=== PATIENT | female | born 1990 | race Caucasian/White ===

== ENCOUNTER 2018-01-10 01:01 | Emergency (ER) | payer BC ==
[2018-01-10] MEDS ORDERED: GI COCKTAIL 45 ML (Maalox/Lidocaine) PO ONE (01:09)
[2018-01-10] MEDS ORDERED: PROTONIX 40 MG IV IV ONE (01:09)
[2018-01-10] MEDS ORDERED: Zofran 4 MG/2 ML VIAL IV ONE (01:09)
[2018-01-10] MEDS ORDERED: Sodium Chloride 0.9% 1000 ML 1,000 ML IV SCH (01:15)
[2018-01-10 01:19] VITALS: BP 124/99; PULSE 98; O2SAT 97
[2018-01-10] MEDS ORDERED: AMOXIL 500 MG PO ONE (01:31)
[2018-01-10] MEDS ORDERED: Tylenol #3 Tablet PO ONE (01:32)
--- NOTE | 2018-01-10 01:39 | ERPHSYRPT ---
- History of Present Illness Time Seen by Provider: 01/10/18 01:22 Source: patient Exam Limitations: clinical condition Patient Subjective Stated Complaint: Pt arrives to ER with c/o left sided jaw pain states has wisdom teeth that are impacted and pain woke pt up out of sleep this morning. Denies fever. Is unsure of abscess. Triage Nursing Assessment: no swelling appreicated. trachea midline. denies difficulty breathing. admits difficulty swallowing. throat is painful. Physician History: PATIENT COMPLAINS OF A LEFT UPPER REAR TOOTHACHE FOR WEEKS, HAS INCREASING PAIN PAST 2-3 DAYS ASSOCIATED WITH GINGIVA SWELLING. DENIES FEVER, DIFFICULTY BREATHING OR SWALLOWING. Timing/Duration: gradual onset Severity: moderate ENT Location: dental Prearrival Treatment: no prearrival treatment Modifying Factors: Improves With: activity Associated Symptoms: facial pain/swelling Allergies/Adverse Reactions: No Known Drug Allergies Allergy (Verified 01/10/18 01:20) Hx Tetanus, Diphtheria Vaccination/Date Given: Yes Hx Influenza Vaccination/Date Given: No Hx Pneumococcal Vaccination/Date Given: No Immunizations Up to Date: Yes - Review of Systems Constitutional: No Fever, No Chills Eyes: No Symptoms Ears, Nose, & Throat: No Symptoms, Loose Teeth Respiratory: No Symptoms, No Cough, No Dyspnea Cardiac: No Symptoms, No Chest Pain, No Edema, No Syncope Abdominal/Gastrointestinal: No Abdominal Pain, No Nausea, No Vomiting, No Diarrhea Genitourinary Symptoms: No Dysuria Musculoskeletal: No Back Pain, No Neck Pain Skin: No Rash Neurological: No Dizziness, No Focal Weakness, No Sensory Changes Psychological: No Symptoms Endocrine: No Symptoms All Other Systems: Reviewed and Negative - Past Medical History Pertinent Past Medical History: Yes Neurological History: No Pertinent History ENT History: No Pertinent History Cardiac History: No Pertinent History Respiratory History: No Pertinent History Endocrine Medical History: No Pertinent History Musculoskeletal History: No Pertinent History GI Medical History: No Pertinent History History: No Pertinent History Psycho-Social History: No Pertinent History Female Reproductive Disorders: Other Other Medical History: PRE ECLAMPSIA - Past Surgical History Past Surgical History: Yes Neuro Surgical History: No Pertinent History Cardiac: No Pertinent History Respiratory: No Pertinent History Gastrointestinal: No Pertinent History Genitourinary: No Pertinent History Musculoskeletal: No Pertinent History Female Surgical History: Section - Social History Smoking Status: Never smoker Exposure to second hand smoke: No Drug Use: none Patient Lives Alone: No - Female History Hx Last Menstrual Period: 12/30/17 Hx Now: No - Nursing Vital Signs Nursing Vital Signs: Initial Vital Signs Temperature 98.8 F 01/10/18 01:13 Pulse Rate 98 H 01/10/18 01:13 Respiratory Rate 18 01/10/18 01:13 Blood Pressure 124/99 01/10/18 01:13 O2 Sat by Pulse Oximetry 97 01/10/18 01:13 Pain Scale Pain Intensity 6 - Physical Exam General Appearance: no apparent distress, alert Nasal Exam: normal inspection Throat Exam: dental tenderness (FRACTURED LEFT UPPER 3RD MOLAR TOOTH, WITH GINGIVAL SWELLING AND TENDERNESS, MULTIPLE CARIES RIGHT UPPER MOLARS) Neck Exam: normal inspection Cardiovascular/Respiratory Exam: chest non-tender SpO2 Interpretation: normal SpO2: 97 Oxygen Delivery: Room Air Ordered Tests: Active Orders 24 hr Category Date Time Status EKG-ER Only STAT Care 01/10/18 01:09 Inactive IV Insertion STAT Care 01/10/18 01:09 Inactive ABDOMEN AND PELVIS W CONTRAST [CT] Stat Exams 01/10/18 01:09 Stop Req Medication Summary Generic Name Dose Route Start Last Admin Trade Name Freq PRN Reason Stop Dose Admin Acetaminophen/Codeine Phosphate 2 tab 01/10/18 01:32 Tylenol #3 Tablet PO 01/10/18 01:33 SENT HOME W/ PATIENT ONE Discontinued Medications Generic Name Dose Route Start Last Admin Trade Name Freq PRN Reason Stop Dose Admin Amoxicillin 500 mg 01/10/18 01:31 Amoxil 500 Mg PO 01/10/18 01:32 STAT ONE Sodium Chloride 1,000 mls @ 100 mls/hr 01/10/18 01:15 Sodium Chloride 0.9% 1000 Ml IV 02/09/18 01:14 .Q10H ALYX Magnesium Hydroxide 45 ml 01/10/18 01:09 Gi Cocktail 45 Ml (Maalox/Lidocaine) PO 01/10/18 01:10 STAT ONE Ondansetron HCl 4 mg 01/10/18 01:09 Zofran 4 Mg/2 Ml Vial IV 01/10/18 01:10 STAT ONE Pantoprazole Sodium 40 mg 01/10/18 01:09 Protonix 40 Mg Iv IV 01/10/18 01:10 STAT ONE - Progress Progress Note: 01/10/18 01:39 ADMINISTERED AMOXICILLIN 500MG ORALLY Counseled pt/family regarding: diagnosis, need for follow-up - Departure Time of Disposition: 01:55 Departure Disposition: Home Clinical Impression: WIDESPREAD DENTAL CARIES Condition: Stable Critical Care Time: No Referrals: PABLITO GOODE [Primary Care Provider] - Additional Instructions: BEGIN ANTIBIOTIC AMOXICILLIN 500MG EVERY 8 HOURS FOR 10 DAYS. TYLENOL #3 EVERY 4 HOURS FOR PAIN NEEDED. CONSULT A DENTIST TO SCHEDULE APPOINTMENT. TAKE OVER THE COUNTER MOTRIN FOR MILD TO MODERATE PAIN. Prescriptions: Codeine Phosphate/APAP #3 [Tylenol #3 Tablet] 1 tab PO Q4H PRN PRN #10 tablet PRN Reason: Pain Amoxicillin 500 mg PO TID #30 capsule
[2018-01-10] MEDS ORDERED: AMOXIL 500 MG ONE (01:46)
[2018-01-10] MEDS ORDERED: Tylenol #3 Tablet ONE (01:46)
== END 2018-01-10 01:59 | disposition home or self-care (01) ==
LOC: ED 01:01
DX: K02.9 Dental caries, unspecified (principal); K08.89 Other specified disorders of teeth and supporting structures
CPT/HCPCS: 36000; 96360; 96374; 99282; 99284; A9270-GY

== ENCOUNTER 2021-01-12 19:12 | Emergency (ER) | payer BC, OTHER ==
[2021-01-12 19:43] LABS: Absolute Neutrophil Ct (ANC) 7.68 (1.4-6.9); BASOPHIL % 0.2 % (0.0-0.4); Basophil (Absolute #) 0.02 (0-0.4); Eosinophil % 0.8 % (0.00-5.0); Eosinophil (Absolute #) 0.09 (0-0.5); Hematocrit 36.9 % (35-47); Hemoglobin 12.7 gm/dl (12.0-16.0); Lymphocyte (Absolute #) 2.19 (1.0-4.6); Lymphocytes % 20.6 % (24.0-44.0); Mean Cell Volume 91.3 fl (78-100); Mean Corpuscular Hemoglobin 31.4 pg (26-32); Mean Corpuscular Hgb Concent. 34.4 g/dl (32-36); Mean Platelet Volume 9.8 fl (7.5-11.0); Monocyte (Absolute #) 0.66 (0.0-1.3); Monocytes % 6.2 % (0.0-12.0); Neutrophil % 72.2 % (36.0-66.0); Platelet Count 207 K/mm3 (150-450); Red Blood Count 4.04 M/mm3 (4.1-5.4); Red Cell Distribution Width 12.1 % (11.5-14.0); White Blood Count 10.6 K/mm3 (4.0-10.5)
[2021-01-12 19:51] LABS: Appearance SLIGHTLY CLOUDY (CLEAR); Bilirubin NEGATIVE (NEGATIVE); Blood SMALL Ery/ul (0-5); Epithelial Cells RARE /HPF (FEW); Glucose NEGATIVE (NEGATIVE); Ketones NEGATIVE (NEGATIVE); Leukocyte Esterase NEGATIVE (NEGATIVE); Mucus SLIGHT /HPF (NEGATIVE); Nitrite NEGATIVE (NEGATIVE); Protein,Urine Dip NEGATIVE (Negative); Specific Gravity 1.025 (1.005-1.025); Urobilinogen 2 mg/dL (0-1)
[2021-01-12 19:59] LABS: ALBUMIN 4.4 g/dL (3.5-5.0); ALKALINE PHOSPHATASE 38 U/L (38-126); ANION GAP 14.1 MEQ/L (5-15); BLOOD UREA NITROGEN 11 mg/dL (7-17); CHLORIDE 103 mmol/L (98-107); Calcium 9.5 mg/dL (8.4-10.2); Carbon Dioxide 25 mmol/L (22-30); Creatinine 1 0.63 mg/dL (0.52-1.04); EST GLOMERULAR FILTRATION RATE > 60.0 ML/MIN; Glucose 68 mg/dL (74-106); Potassium 3.8 mmol/L (3.5-5.1); SGOT/AST 19 U/L (14-36); SGPT/ALT 13 U/L (0-35); SODIUM 138 mmol/L (137-145); Total Protein 7.2 g/dL (6.3-8.2)
--- NOTE | 2021-01-12 20:06 | ERPHSYRPT ---
- History of Present Illness Time Seen by Provider: 01/12/21 19:40 Source: patient Exam Limitations: no limitations Patient Subjective Stated Complaint: pt c/o vaginal spotting and is 7 weeks Triage Nursing Assessment: pt c/o dark scant amt of vaginal bleeding x4 days, and today it seemed to be more pinkish red with tiny clots and a small amt of tissue. Pt is 7 weeks and miscarried in October of 2020 also at 7 weeks. Pt denies any pain or discomfort but some cramping within the last hour. Physician History: Patient is a 30-year-old female G4, P2 M1 presents to our ED with complaints of vaginal discharge x4 days. Vaginal discharge described as small clots. Vaginal discharge is associated with mild intermittent pelvic cramping. Patient's third resulted in a miscarriage at 7 weeks. No associated nausea or vomiting. No diarrhea. No rash. No trauma. Symptoms are mild to moderate in intensity. No specific worsening improving factors. Patient states is otherwise healthy. She voices no other complaints or concerns at this time. Timing/Duration: day(s) Severity: moderate (4 days) Modifying Factors: Improves With: nothing Associated Symptoms: denies symptoms, No nausea, No vomiting, No abdominal pain, No shortness of breath, No diaphoresis, No cough, No chills, No fever, No loss of appetite, No malaise, No rash, No syncope, No seizure, No weakness Allergies/Adverse Reactions: No Known Drug Allergies Allergy (Verified 01/12/21 19:38) Home Medications: No Reportable Medications [No Reported Medications] 01/12/21 [History] Hx Tetanus, Diphtheria Vaccination/Date Given: Yes Hx Influenza Vaccination/Date Given: No Hx Pneumococcal Vaccination/Date Given: No Immunizations Up to Date: Yes Travel Risk - International Travel Have you traveled outside of the country in past 3 weeks: No - Coronavirus Screening Are you exhibiting any of the following symptoms?: No - Vaccine Status Have you recieved a Covid-19 vaccination: No - Review of Systems Constitutional: No Symptoms, No Fever, No Chills Eyes: No Symptoms Ears, Nose, & Throat: No Symptoms Respiratory: No Symptoms, No Cough, No Dyspnea Cardiac: No Symptoms, No Chest Pain, No Edema, No Syncope Abdominal/Gastrointestinal: No Symptoms, No Abdominal Pain, No Nausea, No Vomiting, No Diarrhea Genitourinary Symptoms: No Symptoms, No Dysuria Musculoskeletal: No Symptoms, No Back Pain, No Neck Pain Skin: No Symptoms, No Rash Neurological: No Symptoms, No Dizziness, No Focal Weakness, No Sensory Changes Psychological: No Symptoms Endocrine: No Symptoms Hematologic/Lymphatic: No Symptoms Immunological/Allergic: No Symptoms All Other Systems: Reviewed and Negative - Past Medical History Pertinent Past Medical History: Yes Neurological History: No Pertinent History ENT History: No Pertinent History Cardiac History: No Pertinent History Respiratory History: Asthma Endocrine Medical History: No Pertinent History Musculoskeletal History: No Pertinent History GI Medical History: No Pertinent History History: No Pertinent History Psycho-Social History: Depression Female Reproductive Disorders: Endometriosis, Other Other Medical History: PRE ECLAMPSIA. miscarriage. cyst removed from abd scar tissue in 2019 - Past Surgical History Past Surgical History: Yes Neuro Surgical History: No Pertinent History Cardiac: No Pertinent History Respiratory: No Pertinent History Gastrointestinal: No Pertinent History Genitourinary: No Pertinent History Musculoskeletal: No Pertinent History Female Surgical History: Section Other Surgical History: cyst removed from abd scar tissue in 2019 - Social History Smoking Status: Never smoker Exposure to second hand smoke: Yes Drug Use: marijuana Patient Lives Alone: No - Female History Hx Last Menstrual Period: 11/22/20 Hx Now: Yes Expected Date of Delivery: 08/29/21 Gestational Age: 7 wks - Nursing Vital Signs Nursing Vital Signs: Initial Vital Signs Temperature 97.7 F 01/12/21 19:28 Pulse Rate 78 01/12/21 19:28 Respiratory Rate 16 01/12/21 19:28 Blood Pressure 108/60 01/12/21 19:28 O2 Sat by Pulse Oximetry 99 01/12/21 19:28 Pain Scale Pain Intensity 0 - Physical Exam General Appearance: no apparent distress Eye Exam: PERRL/EOMI, eyes nml inspection, No scleral icterus Ears, Nose, Throat Exam: normal ENT inspection, TMs normal, pharynx normal Neck Exam: normal inspection, non-tender, supple, full range of motion Respiratory Exam: normal breath sounds, chest tenderness, lungs clear, res piratory distress Cardiovascular Exam: regular rate/rhythm, normal heart sounds, normal peripheral pulses Gastrointestinal/Abdomen Exam: soft, normal bowel sounds, No tenderness, No distention Pelvic Exam: normal external exam, vaginal discharge, other (Scant brown discharge. Cervical os is closed. Normal anatomy. No foul odor. No adnexal tenderness. No CMT.), No adnexal tenderness, No adnexal mass, No cervical motio n tenderness, No vaginal bleeding, No uterine tenderness Rectal Exam: deferred Back Exam: normal inspection, normal range of motion, No CVA tenderness Extremity Exam: normal inspection, normal range of motion, pelvis stable Neurologic Exam: alert, oriented x 3, cooperative, normal mood/affect, nml c erebellar function, nml station & gait Skin Exam: normal color, warm, dry SpO2 Interpretation: normal SpO2: 99 O2 Delivery: Room Air - Course Nursing assessment & vital signs reviewed: Yes Ordered Tests: Active Orders 24 hr Category Date Time Status OB <14 WKS 1ST GESTATION [US] Stat Exams 01/12/21 20:36 Taken CBC W DIFF Stat Lab 01/12/21 19:25 Completed CMP Stat Lab 01/12/21 19:25 Completed HCG, Quantitative (Inhouse) Stat Lab 01/12/21 19:25 Completed PROTIME WITH INR Stat Lab 01/12/21 20:00 Completed PTT Stat Lab 01/12/21 20:00 Completed UA W/RFX UR CULTURE Stat Lab 01/12/21 19:27 Completed Wet Prep Stat Lab 01/12/21 20:01 Completed Lab/Rad Data: Laboratory Result Diagrams 01/12/21 19:25 01/12/21 19:25 Laboratory Results 01/12/21 01/12/21 01/12/21 Range/Units 21:30 20:01 20:01 WBC (4.0-10.5) K/mm3 RBC (4.1-5.4) M/mm3 Hgb (12.0-16.0) gm/dl Hct (35-47) % MCV (78-100) fl MCH (26-32) pg MCHC (32-36) g/dl RDW (11.5-14.0) % Plt Count (150-450) K/mm3 MPV (7.5-11.0) fl Gran % (36.0-66.0) % Eos # (Auto) (0-0.5) Absolute Lymphs (auto) (1.0-4.6) Absolute Monos (auto) (0.0-1.3) Lymphocytes % (24.0-44.0) % Monocytes % (0.0-12.0) % Eosinophils % (0.00-5.0) % Basophils % (0.0-0.4) % Absolute Granulocytes (1.4-6.9) Basophils # (0-0.4) PT (9.95-12.35) SECONDS INR (0.8-3.0) APTT (25.3-37.0) SECONDS Sodium (137-145) mmol/L Potassium (3.5-5.1) mmol/L Chloride (98-107) mmol/L Carbon Dioxide (22-30) mmol/L Anion Gap (5-15) MEQ/L BUN (7-17) mg/dL Creatinine (0.52-1.04) mg/dL Estimated GFR ML/MIN Glucose (74-106) mg/dL Calcium (8.4-10.2) mg/dL Total Bilirubin (0.2-1.3) mg/dL AST (14-36) U/L ALT (0-35) U/L Alkaline Phosphatase (38-126) U/L Serum Total Protein (6.3-8.2) g/dL Albumin (3.5-5.0) g/dL Beta HCG, Quant mIU/ml Urine Color (YELLOW) Urine Appearance (CLEAR) Urine pH (5-6) Ur Specific Hanna (1.005-1.025) Urine Protein (Negative) Urine Ketones (NEGATIVE) Urine Blood (0-5) King/ul Urine Nitrite (NEGATIVE) Urine Bilirubin (NEGATIVE) Urine Urobilinogen (0-1) mg/dL Ur Leukocyte Esterase (NEGATIVE) Urine WBC (Auto) (0-5) /HPF Urine RBC (Auto) (0-2) /HPF U Epithel Cells (Auto) (FEW) /HPF Urine Bacteria (Auto) (NEGATIVE) /HPF Urine Mucus (Auto) (NEGATIVE) /HPF Urine Culture Reflexed (NO) Urine Glucose (NEGATIVE) mg/dL WBC (Wet Prep) Rare RBC (Wet Prep) None Seen Epi Cells (Wet Prep) Rare Bacteria (Wet Prep) Few Clue Cells (Wet Prep) None Seen Trichomonas (Wet Prep) None Seen Budding Yeast (Wet Prp) None Seen Chlamydia DNA Probe NOT DETECTED (NEGATIVE) N.gonorrhoeae DNA Probe NOT DETECTED (NEGATIVE) ABO Group B Rh Factor POSITIVE Antibody Screen NEGATIVE (NEGATIVE) 04/05/2701/12/21 01/12/21 Range/Units 20:00 19:27 19:25 WBC (4.0-10.5) K/mm3 RBC (4.1-5.4) M/mm3 Hgb (12.0-16.0) gm/dl Hct (35-47) % MCV (78-100) fl MCH (26-32) pg MCHC (32-36) g/dl RDW (11.5-14.0) % Plt Count (150-450) K/mm3 MPV (7.5-11.0) fl Gran % (36.0-66.0) % Eos # (Auto) (0-0.5) Absolute Lymphs (auto) (1.0-4.6) Absolute Monos (auto) (0.0-1.3) Lymphocytes % (24.0-44.0) % Monocytes % (0.0-12.0) % Eosinophils % (0.00-5.0) % Basophils % (0.0-0.4) % Absolute Granulocytes (1.4-6.9) Basophils # (0-0.4) PT 12.0 (9.95-12.35) SECONDS INR 1.06 (0.8-3.0) APTT 24.9 L (25.3-37.0) SECONDS Sodium (137-145) mmol/L Potassium (3.5-5.1) mmol/L Chloride (98-107) mmol/L Carbon Dioxide (22-30) mmol/L Anion Gap (5-15) MEQ/L BUN (7-17) mg/dL Creatinine (0.52-1.04) mg/dL Estimated GFR ML/MIN Glucose (74-106) mg/dL Calcium (8.4-10.2) mg/dL Total Bilirubin (0.2-1.3) mg/dL AST (14-36) U/L ALT (0-35) U/L Alkaline Phosphatase (38-126) U/L Serum Total Protein (6.3-8.2) g/dL Albumin (3.5-5.0) g/dL Beta HCG, Quant 504049 mIU/ml Urine Color YELLOW (YELLOW) Urine Appearance SLIGHTLY CLOUDY (CLEAR) Urine pH 6.0 (5-6) Ur Specific Hanna 1.025 (1.005-1.025) Urine Protein NEGATIVE (Negative) Urine Ketones NEGATIVE (NEGATIVE) Urine Blood SMALL (0-5) King/ul Urine Nitrite NEGATIVE (NEGATIVE) Urine Bilirubin NEGATIVE (NEGATIVE) Urine Urobilinogen 2 (0-1) mg/dL Ur Leukocyte Esterase NEGATIVE (NEGATIVE) Urine WBC (Auto) 3-5 (0-5) /HPF Urine RBC (Auto) NONE (0-2) /HPF U Epithel Cells (Auto) RARE (FEW) /HPF Urine Bacteria (Auto) NONE (NEGATIVE) /HPF Urine Mucus (Auto) SLIGHT (NEGATIVE) /HPF Urine Culture Reflexed NO (NO) Urine Glucose NEGATIVE (NEGATIVE) mg/dL WBC (Wet Prep) RBC (Wet Prep) Epi Cells (Wet Prep) Bacteria (Wet Prep) Clue Cells (Wet Prep) Trichomonas (Wet Prep) Budding Yeast (Wet Prp) Chlamydia DNA Probe (NEGATIVE) N.gonorrhoeae DNA Probe (NEGATIVE) ABO Group Rh Factor Antibody Screen (NEGATIVE) 01/12/21 01/12/21 Range/Units 19:25 19:25 WBC 10.6 H (4.0-10.5) K/mm3 RBC 4.04 L (4.1-5.4) M/mm3 Hgb 12.7 (12.0-16.0) gm/dl Hct 36.9 (35-47) % MCV 91.3 (78-100) fl MCH 31.4 (26-32) pg MCHC 34.4 (32-36) g/dl RDW 12.1 (11.5-14.0) % Plt Count 207 (150-450) K/mm3 MPV 9.8 (7.5-11.0) fl Gran % 72.2 H (36.0-66.0) % Eos # (Auto) 0.09 (0-0.5) Absolute Lymphs (auto) 2.19 (1.0-4.6) Absolute Monos (auto) 0.66 (0.0-1.3) Lymphocytes % 20.6 L (24.0-44.0) % Monocytes % 6.2 (0.0-12.0) % Eosinophils % 0.8 (0.00-5.0) % Basophils % 0.2 (0.0-0.4) % Absolute Granulocytes 7.68 H (1.4-6.9) Basophils # 0.02 (0-0.4) PT (9.95-12.35) SECONDS INR (0.8-3.0) APTT (25.3-37.0) SECONDS Sodium 138 (137-145) mmol/L Potassium 3.8 (3.5-5.1) mmol/L Chloride 103 (98-107) mmol/L Carbon Dioxide 25 (22-30) mmol/L Anion Gap 14.1 (5-15) MEQ/L BUN 11 (7-17) mg/dL Creatinine 0.63 (0.52-1.04) mg/dL Estimated GFR > 60.0 ML/MIN Glucose 68 L (74-106) mg/dL Calcium 9.5 (8.4-10.2) mg/dL Total Bilirubin 0.40 (0.2-1.3) mg/dL AST 19 (14-36) U/L ALT 13 (0-35) U/L Alkaline Phosphatase 38 (38-126) U/L Serum Total Protein 7.2 (6.3-8.2) g/dL Albumin 4.4 (3.5-5.0) g/dL Beta HCG, Quant mIU/ml Urine Color (YELLOW) Urine Appearance (CLEAR) Urine pH (5-6) Ur Specific Hanna (1.005-1.025) Urine Protein (Negative) Urine Ketones (NEGATIVE) Urine Blood (0-5) King/ul Urine Nitrite (NEGATIVE) Urine Bilirubin (NEGATIVE) Urine Urobilinogen (0-1) mg/dL Ur Leukocyte Esterase (NEGATIVE) Urine WBC (Auto) (0-5) /HPF Urine RBC (Auto) (0-2) /HPF U Epithel Cells (Auto) (FEW) /HPF Urine Bacteria (Auto) (NEGATIVE) /HPF Urine Mucus (Auto) (NEGATIVE) /HPF Urine Culture Reflexed (NO) Urine Glucose (NEGATIVE) mg/dL WBC (Wet Prep) RBC (Wet Prep) Epi Cells (Wet Prep) Bacteria (Wet Prep) Clue Cells (Wet Prep) Trichomonas (Wet Prep) Budding Yeast (Wet Prp) Chlamydia DNA Probe (NEGATIVE) N.gonorrhoeae DNA Probe (NEGATIVE) ABO Group Rh Factor Antibody Screen (NEGATIVE) - Progress Progress: improved Progress Note: 01/12/21 22:19 Patient reassessed. She is well. No vaginal bleeding. Cervical os is closed. Ultrasound shows small 1 cm chorionic bleed. No IUP observed . otherwise negative. Vitals within normal limits. Beta hCG within range. Coags are normal. Patient is B+. Patient voices no other complaints concerns at this time. Will discharge home at this time. Counseled pt/family regarding: lab results, diagnosis, rad results - Departure Departure Disposition: Home Clinical Impression: Subchorionic hemorrhage, Threatened Condition: Stable Critical Care Time: No Referrals: PABLITO MONTES [Primary Care Provider] - Instructions: Subchorionic Bleeding Additional Instructions: Discharge/Care Plan LV BATRES was seen on 01/12/21 in the Emergency Room. The patient was counseled regarding Diagnosis,Lab results, Imaging studies, need for follow up and when to return to the Emergency Room. Prescriptions given: Discharge Note I have spoken with the patient and/or caregivers. I have explained the patient's condition, diagnosis and treatment plan based on the information available to me at this time. I have answered the patient's and/or caregiver's questions and addressed any concerns. The patient and/or caregivers have as good understanding of the patient's diagnosis, condition and treatment plan as can be expected at this point. The vital signs have been stable. The patient's condition is stable and appropriate for discharge from the emergency department. The patient will pursue further outpatient evaluation with the primary care physician or other designated or consulting physician as outlined in the discharge instructions. The patient and/or caregivers are agreeable to this plan of care and follow-up instructions have been explained in detail. The patient and/or caregivers have received these instruction. The patient/and or caregivers are aware that any significant change in condition or worsening of symptoms should prompt an immediate return to this or the closest emergency department or call 911.
[2021-01-12 20:37] LABS: INR 1.06 (0.8-3.0)
[2021-01-12 20:40] LABS: PTT 24.9 SECONDS (25.3-37.0)
[2021-01-12 20:48] LABS: Bacteria Few; Clue Cells None Seen; Red Blood Cells None Seen; Trichomonas None Seen
[2021-01-12 20:49] LABS: White Blood Cells Rare; Yeast None Seen
[2021-01-12 21:39] LABS: CHLAMYDIA DNA NOT DETECTED (NEGATIVE); GC DNA Probe NOT DETECTED (NEGATIVE)
[2021-01-12 22:12] VITALS: BP 108/68; PULSE 72
[2021-01-12 22:17] VITALS: O2SAT 99
[2021-01-12 22:20] LABS: ABO TYPING B; RH TYPING POSITIVE
[2021-01-12 22:21] LABS: Antibody Screen NEGATIVE (NEGATIVE)
--- NOTE | 2021-01-13 08:57 | XRAY ---
Indication: Vaginal bleeding. Two-dimensional transvaginal early OB ultrasound performed. Comparison: None for this . Uterus is retroflexed with a single intrauterine gestational sac with presence of a single pole and yolk sac. Mean crown-rump length measures 1.06 cm corresponding to 7 weeks 1 days. heart rate 150 BPM. Small 1.0 x 0.5 x 0.9 cm subchorionic hemorrhage. Left and right ovaries are unremarkable. No suspicious adnexal mass or free fluid. Impression: Single viable intrauterine measuring 7 weeks 1 day. Expected date confinement is August 30, 2021. Small subchorionic hemorrhage. Comment: Preliminary report was given.
== END 2021-01-12 22:21 | disposition home or self-care (01) ==
LOC: ED 19:12
DX: O20.9 Hemorrhage in early pregnancy, unspecified (principal); Z3A.01 Less than 8 weeks gestation of pregnancy
CPT/HCPCS: 36415; 76801; 80053; 81001; 84702; 85025; 85610; 85730; 86850; 86900; 86901; 87210; 87491; 87591; 99283

== ENCOUNTER 2021-08-23 06:18 | Inpatient (IN) | payer OTHER ==
[~2021-08-23 06:18] MED LIST: Ambien 10 MG PO PRN; Anucort-HC SUPPOSITORY PR PRN; BENADRYL 50 MG/ML IV PRN; CEFAZOLIN 2 GM-D5W BAG** 2 GM/50 ML ML IV SCH; CLARITIN 10 MG PO PRN; DEMEROL 50 MG IV PRN; Dermoplast Spray TP PRN; Dulcolax 10 MG SUPP PR PRN; LANSINOH 40 GM TOP PRN; MORPHINE SULFATE 2 MG INJ IV PRN; Narcan 0.4 MG/ML IV PRN; Nubain 10 MG/ML IV PRN; PERCOCET TABLET 5/325MG PO PRN; Pepcid 20 MG VIAL IV SCH; Reglan 10 MG/2 ML IV SCH; SOD CITRATE-CITRIC ACID SOLN PO SCH; TUCKS TP PRN; Zofran 4 MG/2 ML VIAL IV PRN
[2021-08-23 07:09] LABS: Hematocrit 33.6 % (35-47); Hemoglobin 10.9 gm/dl (12.0-16.0); Mean Cell Volume 93.6 fl (78-100); Mean Corpuscular Hemoglobin 30.4 pg (26-32); Mean Corpuscular Hgb Concent. 32.4 g/dl (32-36); Mean Platelet Volume 9.2 fl (7.5-11.0); Platelet Count 178 K/mm3 (150-450); Red Blood Count 3.59 M/mm3 (4.1-5.4); Red Cell Distribution Width 12.4 % (11.5-14.0); White Blood Count 13.3 K/mm3 (4.0-10.5)
[2021-08-23 07:28] LABS: Appearance SLIGHTLY CLOUDY (CLEAR); Bacteria FEW /HPF (NEGATIVE); Bilirubin NEGATIVE (NEGATIVE); Blood NEGATIVE Ery/ul (0-5); Epithelial Cells FEW /HPF (FEW); Glucose NEGATIVE (NEGATIVE); Ketones NEGATIVE (NEGATIVE); Leukocyte Esterase SMALL (NEGATIVE); Mucus SLIGHT /HPF (NEGATIVE); Nitrite NEGATIVE (NEGATIVE); Protein,Urine Dip NEGATIVE (Negative); Specific Gravity 1.014 (1.005-1.025); Urobilinogen NEGATIVE mg/dL (0-1); WBC 0-2 /HPF (0-5)
[2021-08-23 07:29] LABS: INR 0.86 (0.8-3.0); PROTIME 10.1 SECONDS (9.4-12.5)
[2021-08-23 07:31] LABS: PTT 23.3 SECONDS (25.1-36.5)
[2021-08-23 07:34] LABS: Barbiturate,Urine NEGATIVE (NEGATIVE); Benzodiazepine,Urine NEGATIVE (NEGATIVE); Cocaine,Urine NEGATIVE (NEGATIVE); Methadone,Urine NEGATIVE (NEGATIVE); Opiate,Urine NEGATIVE (NEGATIVE); PCP,Urine NEGATIVE (NEGATIVE); THC,Urine POSITIVE (NEGATIVE)
[2021-08-23 07:37] LABS: Amphetamine,Urine NEGATIVE (NEGATIVE)
[2021-08-23] MEDS: FERREX 150 PO SCH ×2 (07:49→10:49)
[2021-08-23] MEDS: Lactated Ringers 1,000 ML IV SCH ×3 (07:54→10:49)
[2021-08-23 07:59] LABS: ABO TYPING B; Antibody Screen NEGATIVE (NEGATIVE); RH TYPING POSITIVE
[2021-08-23] MEDS ORDERED: CEFAZOLIN 2 GM-D5W BAG** 2 GM/50 ML ML IV ONE (08:20)
[2021-08-23] MEDS ORDERED: PHENYLEPHRINE HCL ONE (09:12)
[2021-08-23] MEDS ORDERED: TORAdol 30 mg Injection ONE (09:12)
[2021-08-23] MEDS ORDERED: Naropin 0.5% 30 ML VIAL ONE (09:12)
[2021-08-23] MEDS ORDERED: Astramorph-Pf 5 MG/10 ML ONE (09:12)
[2021-08-23] MEDS ORDERED: Pitocin 10 UNITS/ML ONE (09:12)
[2021-08-23] MEDS ORDERED: Zofran 4 MG/2 ML VIAL ONE ×2 (09:12→09:36)
[2021-08-23] MEDS ORDERED: Decadron 4 MG INJ ONE (09:12)
[2021-08-23] MEDS ORDERED: EPINEPHRINE 1MG/ML AMP ONE (09:52)
[2021-08-23] MEDS: Dextrose 5%-Lr IV Solution 1000 ML 1,000 ML IV SCH ×3 (10:49→19:52)
[2021-08-23] MEDS: TYLENOL EXTRA STRENGTH 500 MG PO PRN ×2 (13:19→22:14)
[2021-08-23] MEDS: MOTRIN 400 MG PO PRN (14:56)
[2021-08-23 18:07] LABS: Appearance CLEAR (CLEAR); Bilirubin NEGATIVE (NEGATIVE); Blood SMALL Ery/ul (0-5); Glucose NEGATIVE (NEGATIVE); Ketones NEGATIVE (NEGATIVE); Leukocyte Esterase NEGATIVE (NEGATIVE); Nitrite NEGATIVE (NEGATIVE); Protein,Urine Dip NEGATIVE (Negative); Specific Gravity 1.003 (1.005-1.025); Urobilinogen NEGATIVE mg/dL (0-1)
[2021-08-23] MEDS: KEFZOL 1 GM/50 ML PREMIX** 1 GM/50 ML IVPB IV SCH (19:14)
[2021-08-23] MEDS: Colace 100 MG PO SCH (22:14)
[2021-08-24] MEDS: Dextrose 5%-Lr IV Solution 1000 ML 1,000 ML IV SCH (02:15)
[2021-08-24] MEDS: KEFZOL 1 GM/50 ML PREMIX** 1 GM/50 ML IVPB IV SCH (03:09)
[2021-08-24] MEDS: Mylicon 80MG PO PRN ×2 (03:18→10:19)
[2021-08-24 05:01] LABS: Hematocrit 28.3 % (35-47); Mean Corpuscular Hemoglobin 30.2 pg (26-32); Mean Corpuscular Hgb Concent. 31.8 g/dl (32-36); Mean Platelet Volume 9.2 fl (7.5-11.0); Platelet Count 157 K/mm3 (150-450); Red Blood Count 2.98 M/mm3 (4.1-5.4); Red Cell Distribution Width 12.5 % (11.5-14.0); White Blood Count 16.7 K/mm3 (4.0-10.5)
[2021-08-24] MEDS: Lactated Ringers 1,000 ML IV SCH (05:14)
[2021-08-24] MEDS ORDERED: PERCOCET TABLET 5/325MG PO PRN (06:48)
[2021-08-24] MEDS: MOTRIN 400 MG PO PRN ×3 (06:50→22:52)
--- NOTE | 2021-08-24 07:56 | OP ---
SURGERY DATE/TIME: 08/23/2021 0920 PREOPERATIVE DIAGNOSIS: Intrauterine at 39 weeks and 1 day with previous section x2 for elective repeat section. POSTOPERATIVE DIAGNOSIS: Intrauterine at 39 weeks and 1 day with previous section x2 for elective repeat section. PROCEDURE: Repeat section, low flap transverse uterine incision, Pfannenstiel skin incision. SURGEON: Morales Johnson D.O. LINUX SERVER ADMINISTRATOR: Gilda Costa, surgical aide. ANESTHESIA: Spinal. ESTIMATED BLOOD LOSS: 300 cc. COMPLICATIONS: None. INDICATIONS: The risks, benefits, indications and alternatives of the procedure were reviewed with the patient prior to procedure. The patient understood the risk of infection, bleeding, bowel injury, bladder injury, ureteral injury, uterine perforation, pelvic infection, thromboembolic disorder associated with the surgery however desires to have this surgery as a possible means to alleviate her current medical condition. DESCRIPTION OF PROCEDURE AND FINDINGS: At this point the patient is taken to the operating room where her spinal anesthesia was found to be adequate. She was then prepped and draped in normal sterile fashion in the dorsal supine position with leftward tilt. A Pfannenstiel skin incision is made with a scalpel and carried through to the underlying layer of the fascia with a Bovie. The fascia was then incised in the midline and the incision extended laterally with Dutton scissors. The superior aspect of the fascial incision was then grasped Sherrie clamps elevated and the underlying rectus muscles dissected off bluntly. Attention is then turned to the inferior aspect of this incision which in similar fashion was grasped, tented up with Sherrie clamps and the rectus muscles dissected off bluntly. The rectus muscles were then at the midline and the peritoneum identified, tented up and entered sharply with Metzenbaum scissors. The peritoneal incision was then extended superiorly and inferiorly with good visualization of the bladder. The bladder blade was then inserted and the vesicouterine peritoneum identified, grasped with a pickup and entered sharply with Metzenbaum scissors. This incision was then extended laterally and the bladder flap created digitally. The bladder blade was then re-inserted and the lower uterine segment incised in transverse fashion with a scalpel. The uterine incision was then extended laterally with bandage scissors. The bladder blade was then removed and the infants head was delivered atraumatically. The nose and mouth were suctioned with bulb suction and the cord clamped and cut. The infant was then handed off to the awaiting nurses. The placenta was then removed manually. The uterus exteriorized and cleared of all clots and debris. The uterine incision was repaired with 1-0 chromic in a running locked fashion. A second layer of the same suture was used to obtain excellent hemostasis. At this point the uterus is then returned to the abdomen. The gutters were cleared of all clots and the peritoneum closed in interrupted fashion using 2-0 chromic suture. The fascia was re-approximated with 0 Vicryl in running fashion. The subcutaneous layer was closed with 3-0 plain suture and the skin was closed with absorbable vi called INSORB. The patient tolerated the procedure well. Sponge, lap, needle and instrument counts were correct x2. The patient was then taken to the recovery room in stable condition. The patient delivered a live baby girl at 0949 hours. The weight of the baby was 8 pounds 1 ounce. 's were 8 at 1 minute and 9 at 5 minutes.
[2021-08-24] MEDS ORDERED: ENOXAPARIN SODIUM SQ ONE (08:00)
--- NOTE | 2021-08-24 08:12 | PCM.NOTE ---
Date and Time: 08/24/21 08 Subjective Assessment: pod 1 pt resting in bed and doing well. ambulating and tolerating diet vss afebrile abd; soft incision c/d/intact uterus; firm lochia; milld a/p sp csection pod 1 hgb; 9.0 anticipate discharge tomorrow OBJECTIVE DATA Vital Signs: Vital Signs - 24 hr Temp Pulse Resp BP BP Pulse Ox 08/24/21 06:59 96 08/24/21 06:00 98 08/24/21 05:00 97 08/24/21 04:00 97 08/24/21 03:00 100 08/24/21 02:00 97.6 F 66 20 100/57 100 08/24/21 01:00 96 08/24/21 00:00 96 08/23/21 22:59 100 08/23/21 22:00 100 08/23/21 21:00 98 08/23/21 20:00 100 08/23/21 19:00 99 08/23/21 18:00 99 08/23/21 17:00 97.8 F 64 20 109/58 99 08/23/21 16:00 100 08/23/21 15:00 100 08/23/21 14:00 99 08/23/21 13:15 60 20 97/60 97 08/23/21 13:00 98 08/23/21 12:15 70 18 104/59 95 08/23/21 12:00 98 08/23/21 11:15 64 20 94/55 96 08/23/21 11:10 98.3 F 81 18 136/92 97 08/23/21 11:00 97.5 F 75 20 136/92 97 Pain Assessment - Last Documented Pain Intensity 5 Pain Scale Used 0-10 Pain Scale Intake and Output: Intake & Output 08/21/21 08/22/21 08/23/21 08/24/21 11:59 11:59 11:59 11:59 Intake Total 4341 Output Total 1800 Balance 2541 Weight 96.162 kg Lab Results: Lab Results-Last 24 Hours 08/23/21 08/24/21 Range/Units 09:36 04:51 WBC 16.7 H (4.0-10.5) K/mm3 RBC 2.98 L (4.1-5.4) M/mm3 Hgb 9.0 L (12.0-16.0) gm/dl Hct 28.3 L (35-47) % MCV 95.0 (78-100) fl MCH 30.2 (26-32) pg MCHC 31.8 L (32-36) g/dl RDW 12.5 (11.5-14.0) % Plt Count 157 (150-450) K/mm3 MPV 9.2 (7.5-11.0) fl Urine Color STRAW (YELLOW) Urine Appearance CLEAR (CLEAR) Urine pH 8.0 (5-6) Ur Specific [place] 1.003 (1.005-1.025) Urine Protein NEGATIVE (Negative) Urine Ketones NEGATIVE (NEGATIVE) Urine Blood SMALL (0-5) King/ul Urine Nitrite NEGATIVE (NEGATIVE) Urine Bilirubin NEGATIVE (NEGATIVE) Urine Urobilinogen NEGATIVE (0-1) mg/dL Ur Leukocyte Esterase NEGATIVE (NEGATIVE) Urine WBC (Auto) NONE (0-5) /HPF Urine RBC (Auto) NONE (0-2) /HPF U Epithel Cells (Auto) NONE (FEW) /HPF Urine Bacteria (Auto) NONE (NEGATIVE) /HPF Urine Glucose NEGATIVE (NEGATIVE) mg/dL Multi-Disciplinary Progress Notes: Multi-Disciplinary Progress Notes 08/23/21 09:49 (created 08/23/21 10:30) Respiratory Note by Arianna Humphreys Baby delivered via . Baby crying upon delivery. Brought over to warmer and dried and stimulated. Baby pinked up and crying. Taken to mom for her to see. Initialized on 08/23/21 10:30 - END OF NOTE Assessment/Plan (1) S/P repeat low transverse Current Visit: Yes Status: Acute Code(s): Z98.891 - HISTORY OF UTERINE SCAR FROM PREVIOUS SURGERY
[2021-08-24 08:58] LABS: BAND 1 % (0.0-2.0); Eosinophil 1 % (0.00-3.0); Lymphocytes 9 % (24-44); Monocyte 6 % (0.0-12.0); Neutrophils 83 % (36.0-66.0); Platelet Estimate NORMAL (NORMAL); Total Cells Counted 100; Toxic Granulation 1+
[2021-08-24 10:11] LABS: HBsAg Screen Negative (Negative)
[2021-08-24] MEDS: FERREX 150 PO SCH (10:19)
[2021-08-24] MEDS: Colace 100 MG PO SCH ×2 (10:19→21:04)
[2021-08-24] MEDS: NORCO 5/325 MG PO PRN ×3 (12:44→21:04)
[2021-08-24] MEDS ORDERED: Adacel Vial IM ONE (15:00)
[2021-08-25] MEDS: NORCO 5/325 MG PO PRN ×3 (01:10→09:26)
[2021-08-25] MEDS: MOTRIN 400 MG PO PRN (05:05)
--- NOTE | 2021-08-25 07:25 | PCM.NOTE ---
Date and Time: 08/25/21722 Subjective Assessment: pod 2 pt resting in bed and doing well. ambulating and tolerating diet vss afebrile abd; soft incision c/d/intact uterus; firm lochia; mild a/p sp csection pod 2 dc home today OBJECTIVE DATA Vital Signs: Vital Signs - 24 hr Temp Pulse Resp BP BP Pulse Ox 08/25/21 02:00 97.8 F 77 18 106/57 98 08/24/21 20:00 97.8 F 88 18 117/63 97 08/24/21 14:00 97.8 F 86 20 101/54 98 08/24/21 08:00 97.6 F 57 L 20 104/55 104/55 97 Pain Assessment - Last Documented Pain Intensity [Anterior] 3 Pain Intensity 0 Pain Scale Used FLACC Intake and Output: Intake & Output 08/22/21 08/23/21 08/24/21 08/25/21 11:59 11:59 11:59 11:59 Intake Total 4341 1950 Output Total 1800 Balance 2541 1950 Weight 96.162 kg Lab Results: Lab Results-Last 24 Hours 08/23/21 08/24/21 Range/Units 06:45 04:51 Segmented Neutrophils 83 H (36.0-66.0) % Band Neutrophils 1 (0.0-2.0) % Lymphocytes (Manual) 9 L (24-44) % Monocytes (Manual) 6 (0.0-12.0) % Eosinophils (Manual) 1 (0.00-3.0) % Toxic Granulation 1+ Platelet Estimate NORMAL (NORMAL) RBC Morphology NORMAL Hep Bs Antigen Negative (Negative) Assessment/Plan (1) S/P repeat low transverse Current Visit: Yes Status: Acute Code(s): Z98.891 - HISTORY OF UTERINE SCAR FROM PREVIOUS SURGERY
--- NOTE | 2021-08-25 07:34 | PCM.DS ---
Discharge Summary Date of Admission: 08/23/21 06:18 Admitting Physician: LOIS MERINO DO Consults: Consults on Case 08/23/21 05:00 Notify Anesthesia Provider ROUTINE Notify Physician OF ADMISSION Primary Care Provider: PABLITO GARCIA Allergies Allergies No Known Drug Allergies Allergy (Verified 01/12/21 19:38) Hospital Summary - Hospital Course Hospital Course: pt admitted on aug 23 for undergoing repeat section and was done so without complication. during postop period did well and had stable hgb at 9 and at this time stable for discharge. pt able to ambulate and tolerate diet. incision c/d/intact. pt was advised to fu in office in 2 wks. all questions answered to her satisfaction. - Vitals & Intake/Output Vital Signs: Vital Signs Temperature 97.8 F 08/25/21 02:00 Pulse Rate 77 08/25/21 02:00 Respiratory Rate 18 08/25/21 02:00 Blood Pressure 106/57 08/25/21 02:00 O2 Sat by Pulse Oximetry 98 08/25/21 02:00 Intake & Output: Intake & Output 08/22/21 08/23/21 08/24/21 08/25/21 11:59 11:59 11:59 11:59 Intake Total 4341 1950 Output Total 1800 Balance 2541 1950 Weight 96.162 kg - Lab Result Diagrams: 08/24/21 04:51 Lab Results-Last 24 Hrs: Lab Results-Last 24 Hours 08/23/21 08/24/21 Range/Units 06:45 04:51 Segmented Neutrophils 83 H (36.0-66.0) % Band Neutrophils 1 (0.0-2.0) % Lymphocytes (Manual) 9 L (24-44) % Monocytes (Manual) 6 (0.0-12.0) % Eosinophils (Manual) 1 (0.00-3.0) % Toxic Granulation 1+ Platelet Estimate NORMAL (NORMAL) RBC Morphology NORMAL Hep Bs Antigen Negative (Negative) Micro Results-Entire Visit: Microbiology 08/23/21 09:36 Urine Culture - Final Urine, Catheterized NO GROWTH - Procedures and Test Procedures and Tests throughout Hospitalization: Therapy Orders & Screens 08/23/21 10:29 Standby STAT Comment: Diagnosis: Post Op Final Diagnosis/Problem List - Final Discharge Diagnosis/Problem (1) S/P repeat low transverse Current Visit: Yes Status: Acute Code(s): Z98.891 - HISTORY OF UTERINE SCAR FROM PREVIOUS SURGERY - Discharge Disposition: Home, Self-Care Condition: Stable Prescriptions: New Hydrocodone/Acetaminophen [Hydrocodone-Acetamin 5-325 mg] 1 tab PO Q6HPRN PRN #30 tablet MDD 4 PRN Reason: Pain No Action Vits W-Ca,Fe,FA(<1Mg) [] 1 tab PO DAILY Aspirin EC 81 mg [Ecotrin 81 mg] 1 tab PO DAILY Follow up with: PABLITO GARCIA [Primary Care Provider] - LOIS MERINO DO [ACTIVE STAFF] - 2 weeks (keep incision clean and dry no driving for a week no intercourse for 4 wks)
[2021-08-25] MEDS: Colace 100 MG PO SCH (08:02)
[2021-08-25] MEDS: FERREX 150 PO SCH (08:02)
[2021-08-28 16:50] VITALS: BP 130/57; PULSE 77; O2SAT 99
== END 2021-08-25 12:15 | disposition home or self-care (01) | DRG 788 ==
LOC: OB 06:18 → OBSVTOIN 06:18
PROVIDERS: ADMIT Obstetrics & Gynecology; ATTEND Obstetrics & Gynecology
PROC: 10D00Z1 Extraction of Products of Conception, Low, Open Approach (ICD-10-PCS; principal; 2021-08-23)
DX: O34.219 Maternal care for unspecified type scar from previous cesarean delivery (principal); Z37.0 Single live birth; Z3A.39 39 weeks gestation of pregnancy
CPT/HCPCS: 0241U; 36415; 59514; 64488; 76937; 76942; 80307; 81001; 85025; 85027; 85610; 85730; 86850; 86900; 86901; 87086; 87340; 90471; 90715; 94799; J0171; J0690; J1100; J1650; J1885; J2274; J2370; J2405; J2590; J2795; L0625; A9270-GY

== ENCOUNTER 2022-06-30 15:49 | Emergency (ER) | payer OTHER ==
--- NOTE | 2022-06-30 16:29 | ERPHSYRPT ---
- History of Present Illness Time Seen by Provider: 06/30/22 16:15 Historian: patient Exam Limitations: no limitations Patient Subjective Stated Complaint: C/O intermittent pain to right side; patient states abdominal pain put is pointing to her right side just beneath her ribcage. No current pain. Pain is sharp when is happens. States it first happened last night she coughed last night; states has had a cough for a few weeks now. Triage Nursing Assessment: Patient ambulated back to ED. She is alert and oriented. An occassional cough, non-productive noted; no SOB. Abdomen is soft with excessive skin noted; patient indicates she weighed 212 lbs in August of 2021 and currently weighs 127.5 lbs. Patient has not been trying to lose weight. No skin abnormalities noted to abdomen, torso, rib area. Physician History: This is a 31-year-old white female who has had sections x3 and presents with right upper quadrant abdominal pain that was sudden and severe in onset but now has decreased in its intensity but is still present. Patient is concerned because the pain was so intense. Patient does have a history of endometriosis in the past. She is also lost 85 pounds over the last 10 to 11 months per her report. She also has noticed hair loss. She has no fever. She has no chest pain she is not short of breath. She has no cough. Her pain is not in her chest but in the right upper quadrant. Before she was ever she weighed approximately 150 pounds. After having 3 children, the last approximately 10 months ago, she weighed approximately 212 pounds. In the last 11 months he has lost the 85 pounds unintentionally. She has not been vomiting blood. She has not had bloody bowel movements. She has had no hematuria. Patient denies bulimia and she denies any other eating disorder. Timing/Duration: today Activities at Onset: none Quality: sharpness, stabbing Abdominal Pain Onset Location: RUQ Pain Radiation: no radiation Severity of Pain-Max: moderate Severity of Pain-Current: none Modifying Factors: Improves With: nothing Associated Symptoms: denies symptoms, No chest pain, No shortness of breath Previous symptoms: no prior history Allergies/Adverse Reactions: No Known Drug Allergies Allergy (Verified 06/30/22 16:04) Home Medications: Sertraline HCl 50 mg [Zoloft 50 mg Tablet] 1 tab PO DAILY 06/30/22 [History] Hx Tetanus, Diphtheria Vaccination/Date Given: Yes Hx Influenza Vaccination/Date Given: No Hx Pneumococcal Vaccination/Date Given: No Immunizations Up to Date: Yes Travel Risk - International Travel Have you traveled outside of the country in past 3 weeks: No - Coronavirus Screening Are you exhibiting any of the following symptoms?: Yes Symptoms: Cough: New Onset Close contact with a COVID-19 positive Pt in past 14-21 Days: No - Vaccine Status Have you recieved a Covid-19 vaccination: No - Review of Systems Constitutional: No Symptoms Eyes: No Symptoms Ears, Nose, & Throat: No Symptoms Respiratory: No Symptoms Cardiac: No Symptoms Abdominal/Gastrointestinal: Abdominal Pain (Right upper quadrant. Now nearly completely resolved), No Nausea, No Vomiting, No Diarrhea Genitourinary Symptoms: No Symptoms Musculoskeletal: No Symptoms Skin: No Symptoms Neurological: No Symptoms Psychological: No Symptoms Endocrine: Hair Changes Hematologic/Lymphatic: No Symptoms Immunological/Allergic: No Symptoms All Other Systems: Reviewed and Negative - Past Medical History Pertinent Past Medical History: Yes Neurological History: No Pertinent History ENT History: No Pertinent History Cardiac History: No Pertinent History Respiratory History: Asthma Endocrine Medical History: No Pertinent History Musculoskeletal History: No Pertinent History GI Medical History: No Pertinent History History: No Pertinent History Psycho-Social History: No Pertinent History Female Reproductive Disorders: Endometriosis, Other Other Medical History: PRE ECLAMPSIA, miscarriage - Past Surgical History Past Surgical History: Yes Neuro Surgical History: No Pertinent History Cardiac: No Pertinent History Respiratory: No Pertinent History Gastrointestinal: No Pertinent History Genitourinary: No Pertinent History Musculoskeletal: No Pertinent History Female Surgical History: Section Other Surgical History: Procedure completed by Dr. Santamaria in 2019 for endometriosis - Social History Smoking Status: Never smoker Exposure to second hand smoke: Yes Drug Use: none Patient Lives Alone: No - Female History Hx Last Menstrual Period: NOW Hx Now: No - Nursing Vital Signs Nursing Vital Signs: Initial Vital Signs Temperature 97.5 F 06/30/22 16:05 Pulse Rate 64 06/30/22 16:05 Respiratory Rate 17 06/30/22 16:05 Blood Pressure 129/87 06/30/22 16:05 O2 Sat by Pulse Oximetry 96 06/30/22 16:05 Pain Scale Pain Intensity 0 - Physical Exam General Appearance: no apparent distress, alert, anxiety Eye Exam: PERRL/EOMI, eyes nml inspection Ears, Nose, Throat Exam: normal ENT inspection, moist mucous membranes Neck Exam: normal inspection, non-tender, supple, full range of motion Respiratory Exam: normal breath sounds, lungs clear, airway intact, No chest tenderness, No respiratory distress Cardiovascular Exam: regular rate/rhythm, normal heart sounds, normal peripheral pulses Gastrointestinal/Abdomen Exam: soft, normal bowel sounds, No tenderness Rectal Exam: not done Back Exam: normal inspection, normal range of motion, No CVA tenderness, No vertebral tenderness Extremity Exam: normal inspection, normal range of motion, pelvis stable Neurologic Exam: alert, oriented x 3, cooperative, marble polisher II-XII nml as tested, normal mood/affect, nml cerebellar function, nml station & gait, sensation nml Skin Exam: normal color, warm, dry Lymphatic Exam: No adenopathy SpO2 Interpretation: normal SpO2: 96 O2 Delivery: Room Air - Course Nursing assessment & vital signs reviewed: Yes Ordered Tests: Active Orders 24 hr Category Date Time Status IV Insertion STAT Care 06/30/22 16:28 Active ABDOMEN AND PELVIS W/0 CONTRAS [CT] Stat Exams 06/30/22 16:29 Taken AMYLASE Stat Lab 06/30/22 16:49 Completed CBC W DIFF Stat Lab 06/30/22 16:49 Completed CMP Stat Lab 06/30/22 16:49 Completed HCG,QUALITATIVE URINE Stat Lab 06/30/22 16:47 Completed LIPASE Stat Lab 06/30/22 16:49 Completed MAGNESIUM Stat Lab 06/30/22 16:49 Completed T4 (Thyroxine) Stat Lab 06/30/22 16:31 Received TSH [TSH, 3RD Generation] Stat Lab 06/30/22 16:31 Completed UA W/RFX CULTURE Stat Lab 06/30/22 16:31 Completed Urine Triage Profile Stat Lab 06/30/22 16:31 Received Medication Summary Generic Name Dose Route Start Last Admin Trade Name Freq PRN Reason Stop Dose Admin Ceftriaxone Sodium/Dextrose 1 g in 50 mls @ 100 mls/hr 06/30/22 18:01 Rocephin 1 Gm-D5w 50 Ml Bag IV 06/30/22 18:30 STAT STA Discontinued Medications Generic Name Dose Route Start Last Admin Trade Name Freq PRN Reason Stop Dose Admin Methylprednisolone Sodium 0 mg 06/30/22 18:01 Succinate 125 mg/ Sterile IV 06/30/22 18:02 Water 2 ml STAT ONE Hydromorphone HCl Confirm 06/30/22 17:45 Hydromorphone 1 Mg/1ml Inj 1 Mg/Ml Syringe Administered 06/30/22 17:46 Dose 1 mg .ROUTE .STK-MED ONE Lab/Rad Data: Laboratory Result Diagrams 06/30/22 16:49 06/30/22 16:49 Laboratory Results 06/30/22 06/30/22 06/30/22 Range/Units 16:49 16:49 16:47 WBC 5.2 (4.0-10.5) x10^3/uL RBC 4.19 (4.1-5.4) x10^6/uL Hgb 12.8 (12.0-16.0) g/dL Hct 38.3 (35-47) % MCV 91.4 (78-100) fL MCH 30.5 (26-32) pg MCHC 33.4 (32-36) g/dL RDW 12.0 (11.5-14.0) % Plt Count 234 (150-450) x10^3/uL MPV 9.7 (7.5-11.0) fL Gran % 55.7 (36.0-66.0) % Immature Gran % (Auto) 0.2 (0.00-0.4) % Nucleat RBC Rel Count 0.0 (0.00-0.1) % Eos # (Auto) 0.09 (0-0.5) x10^3/uL Immature Gran # (Auto) 0.01 (0.00-0.03) x10^3u/L Absolute Lymphs (auto) 1.80 (1.0-4.6) x10^3/uL Absolute Monos (auto) 0.35 (0.0-1.3) x10^3/uL Absolute Nucleated RBC 0.00 (0.00-0.01) x10^3u/L Lymphocytes % 34.4 (24.0-44.0) % Monocytes % 6.7 (0.0-12.0) % Eosinophils % 1.7 (0.00-5.0) % Basophils % 1.3 (0.0-0.4) % Absolute Granulocytes 2.92 (1.4-6.9) x10^3/uL Basophils # 0.07 (0-0.4) x10^3/uL Sodium 136 L (137-145) mmol/L Potassium 4.0 (3.5-5.1) mmol/L Chloride 103 (98-107) mmol/L Carbon Dioxide 24 (22-30) mmol/L Anion Gap 12.7 (5-15) MEQ/L BUN 11 (7-17) mg/dL Creatinine 0.63 (0.52-1.04) mg/dL Estimated GFR > 60.0 ML/MIN Glucose 88 (74-106) mg/dL Calcium 9.0 (8.4-10.2) mg/dL Magnesium 1.8 (1.6-2.3) mg/dL Total Bilirubin 0.90 (0.2-1.3) mg/dL AST 23 (14-36) U/L ALT 18 (0-35) U/L Alkaline Phosphatase 78 (38-126) U/L Serum Total Protein 7.3 (6.3-8.2) g/dL Albumin 4.4 (3.5-5.0) g/dL Amylase 61 (30-110) U/L Lipase 76 (23-300) U/L TSH 3rd Generation (0.47-4.68) mIU/L Urinalys Dipstick Clnc Urine Color (YELLOW) Urine Appearance (CLEAR) Urine pH (5-6) Ur Specific [place] (1.005-1.025) POC Urine Protein Conf (Negative) Urine Ketones (NEGATIVE) Urine Nitrite (NEGATIVE) Urine Bilirubin (NEGATIVE) Urine Urobilinogen (0-1) mg/dL Urine Leukocytes (NEGATIVE) Urine WBC (Auto) (0-5) /HPF Urine RBC (Auto) (0-2) /HPF U Epithel Cells (Auto) (FEW) /HPF Urine Bacteria (Auto) (NEGATIVE) /HPF Urine RBC (0-5) King/ul Urine Mucus (Auto) (NEGATIVE) /HPF Ur Culture Indicated? Urine Glucose (NEGATIVE) mg/dL Urine HCG, Qual NEGATIVE (Negative) 06/30/22 06/30/22 Range/Units 16:31 16:31 WBC (4.0-10.5) x10^3/uL RBC (4.1-5.4) x10^6/uL Hgb (12.0-16.0) g/dL Hct (35-47) % MCV (78-100) fL MCH (26-32) pg MCHC (32-36) g/dL RDW (11.5-14.0) % Plt Count (150-450) x10^3/uL MPV (7.5-11.0) fL Gran % (36.0-66.0) % Immature Gran % (Auto) (0.00-0.4) % Nucleat RBC Rel Count (0.00-0.1) % Eos # (Auto) (0-0.5) x10^3/uL Immature Gran # (Auto) (0.00-0.03) x10^3u/L Absolute Lymphs (auto) (1.0-4.6) x10^3/uL Absolute Monos (auto) (0.0-1.3) x10^3/uL Absolute Nucleated RBC (0.00-0.01) x10^3u/L Lymphocytes % (24.0-44.0) % Monocytes % (0.0-12.0) % Eosinophils % (0.00-5.0) % Basophils % (0.0-0.4) % Absolute Granulocytes (1.4-6.9) x10^3/uL Basophils # (0-0.4) x10^3/uL Sodium (137-145) mmol/L Potassium (3.5-5.1) mmol/L Chloride (98-107) mmol/L Carbon Dioxide (22-30) mmol/L Anion Gap (5-15) MEQ/L BUN (7-17) mg/dL Creatinine (0.52-1.04) mg/dL Estimated GFR ML/MIN Glucose (74-106) mg/dL Calcium (8.4-10.2) mg/dL Magnesium (1.6-2.3) mg/dL Total Bilirubin (0.2-1.3) mg/dL AST (14-36) U/L ALT (0-35) U/L Alkaline Phosphatase (38-126) U/L Serum Total Protein (6.3-8.2) g/dL Albumin (3.5-5.0) g/dL Amylase (30-110) U/L Lipase (23-300) U/L TSH 3rd Generation 0.875 (0.47-4.68) mIU/L Urinalys Dipstick Clnc MAIN LAB Urine Color YELLOW (YELLOW) Urine Appearance CLEAR (CLEAR) Urine pH 5.5 (5-6) Ur Specific [place] >=1.030 (1.005-1.025) POC Urine Protein Conf NEGATIVE (Negative) Urine Ketones TRACE (NEGATIVE) Urine Nitrite NEGATIVE (NEGATIVE) Urine Bilirubin SMALL (NEGATIVE) Urine Urobilinogen 1 (0-1) mg/dL Urine Leukocytes NEGATIVE (NEGATIVE) Urine WBC (Auto) 0-2 (0-5) /HPF Urine RBC (Auto) 0-2 (0-2) /HPF U Epithel Cells (Auto) RARE (FEW) /HPF Urine Bacteria (Auto) NONE (NEGATIVE) /HPF Urine RBC SMALL (0-5) King/ul Urine Mucus (Auto) SLIGHT (NEGATIVE) /HPF Ur Culture Indicated? NO Urine Glucose NEGATIVE (NEGATIVE) mg/dL Urine HCG, Qual (Negative) - Progress Progress: improved, re-examined Progress Note: 06/30/22 18:03 CAT scan of the abdomen pelvis without contrast shows no acute intra-abdominal or intrapelvic pathology or process. There is evidence of pneumonitis in the right lower lung lobe. Counseled pt/family regarding: lab results, diagnosis, need for follow-up, rad results - Departure Departure Disposition: Home Clinical Impression: Pneumonitis, Weight loss, Hair loss, Right upper quadrant abdominal pain Condition: Stable Critical Care Time: No Referrals: PABLITO GARCIA [Primary Care Provider] - Follow up/PCP as directed Additional Instructions: Take your medication as prescribed. Follow-up with Dr. Fritz Copeland at her office. Call on 07/02/2022 to make arrange for follow-up appointment for further evaluation and management of your weight loss and hair loss issues. Prescriptions: Prednisone 10 mg [Deltasone 10 mg] 10 mg PO TID #12 tablet Azithromycin 250 mg [Zithromax 250 MG TABLET] 250 mg PO ZPACK #6 tablet
[2022-06-30 16:52] LABS: Absolute Neutrophil Ct (ANC) 2.92 x10^3/uL (1.4-6.9); Basophil (Absolute #) 0.07 x10^3/uL (0-0.4); Eosinophil % 1.7 % (0.00-5.0); Eosinophil (Absolute #) 0.09 x10^3/uL (0-0.5); Hematocrit 38.3 % (35-47); Hemoglobin 12.8 g/dL (12.0-16.0); Lymphocytes % 34.4 % (24.0-44.0); Mean Cell Volume 91.4 fL (78-100); Mean Corpuscular Hemoglobin 30.5 pg (26-32); Mean Corpuscular Hgb Concent. 33.4 g/dL (32-36); Mean Platelet Volume 9.7 fL (7.5-11.0); Monocyte (Absolute #) 0.35 x10^3/uL (0.0-1.3); Monocytes % 6.7 % (0.0-12.0); Neutrophil % 55.7 % (36.0-66.0); Platelet Count 234 x10^3/uL (150-450); Red Blood Count 4.19 x10^6/uL (4.1-5.4); White Blood Count 5.2 x10^3/uL (4.0-10.5)
[2022-06-30 17:08] LABS: Appearance CLEAR (CLEAR); Glucose NEGATIVE (NEGATIVE)
[2022-06-30 17:09] LABS: ALBUMIN 4.4 g/dL (3.5-5.0); ALKALINE PHOSPHATASE 78 U/L (38-126); AMYLASE 61 U/L (30-110); ANION GAP 12.7 MEQ/L (5-15); BLOOD UREA NITROGEN 11 mg/dL (7-17); CHLORIDE 103 mmol/L (98-107); Carbon Dioxide 24 mmol/L (22-30); Creatinine 1 0.63 mg/dL (0.52-1.04); EST GLOMERULAR FILTRATION RATE > 60.0 ML/MIN; Glucose 88 mg/dL (74-106); LIPASE 76 U/L (23-300); MAGNESIUM 1.8 mg/dL (1.6-2.3); SGOT/AST 23 U/L (14-36); SGPT/ALT 18 U/L (0-35); SODIUM 136 mmol/L (137-145); Total Protein 7.3 g/dL (6.3-8.2)
[2022-06-30 17:09] LABS: Bilirubin SMALL (NEGATIVE); Dipstick done @ ? MAIN LAB; Ketones TRACE (NEGATIVE); Nitrite NEGATIVE (NEGATIVE); Ph 5.5 (5-6); Protein,Urine Dip NEGATIVE (Negative); RBC SMALL Ery/ul (0-5); Specific Gravity >=1.030 (1.005-1.025); Urobilinogen 1 mg/dL (0-1)
[2022-06-30 17:10] LABS: Epithelial Cells RARE /HPF (FEW); Mucus SLIGHT /HPF (NEGATIVE); RBC 0-2 /HPF (0-2); WBC 0-2 /HPF (0-5)
[2022-06-30 17:17] LABS: Urine Cultured Indicated? NO
[2022-06-30 17:22] LABS: Barbiturate,Urine NEGATIVE (NEGATIVE); Benzodiazepine,Urine NEGATIVE (NEGATIVE); Methadone,Urine NEGATIVE (NEGATIVE); Opiate,Urine NEGATIVE (NEGATIVE); PCP,Urine NEGATIVE (NEGATIVE); THC,Urine POSITIVE (NEGATIVE)
[2022-06-30 17:27] LABS: Cocaine,Urine NEGATIVE (NEGATIVE)
[2022-06-30] MEDS ORDERED: Hydromorphone 1 mg/ml Injection ONE (17:45)
[2022-06-30] MEDS ORDERED: ROCEPHIN 1 Gm-D5w 50 ml Bag** 1 G/50 ML IVPB IV STA (18:01)
[2022-06-30] MEDS ORDERED: solu-MEDROL 125 MG, Sterile H2O 10 ml 2 ML IV ONE ×2 (18:01)
[2022-06-30 18:07] LABS: Amphetamine,Urine NEGATIVE (NEGATIVE)
[2022-06-30] MEDS ORDERED: Sterile H2O 10 ml IJ ONE (18:09)
[2022-06-30] MEDS ORDERED: ROCEPHIN 1 Gm-D5w 50 ml Bag** 1 G/50 ML IVPB IV ONE (18:09)
[2022-06-30] MEDS ORDERED: solu-MEDROL ONE (18:09)
[2022-06-30 18:22] VITALS: BP 111/67; PULSE 62; O2SAT 97
--- NOTE | 2022-06-30 21:12 | XRAY ---
Indication: Right upper quadrant pain 1 week. Unexplained weight loss 8 months. Multiple contiguous axial images obtained through the abdomen and pelvis without contrast. Comparison: None Lung bases demonstrates patchy right lower lobe interstitial alveolar opacities without effusion. Heart not enlarged. Noncontrasted stomach and bowel loops nonobstructed with normal appendix. No free fluid/air. Remaining liver, gallbladder, pancreas, spleen, adrenal glands, kidneys, ureters, bladder, uterus, and aorta are unremarkable for noncontrast exam. Osseous structures intact. No ventral or inguinal hernias. Impression: 1. Patchy right lower lobe pneumonitis. 2. Remaining CT abdomen/pelvis without contrast exam is negative. Comment: Preliminary interpretation made by [facility]. No critical discrepancy.
== END 2022-06-30 18:40 | disposition home or self-care (01) ==
LOC: ED 15:49
DX: J18.9 Pneumonia, unspecified organism (principal); R63.4 Abnormal weight loss; L65.9 Nonscarring hair loss, unspecified; R10.11 Right upper quadrant pain; Z79.52 Long term (current) use of systemic steroids; Z79.899 Other long term (current) drug therapy; Z28.310 Unvaccinated for COVID-19
CPT/HCPCS: 36000; 36415; 74176; 80053; 80307; 81015; 81025; 82150; 83690; 83735; 84436; 84443; 85025; 96365; 96374; 99284; J0696; J1170; J2930